=== PATIENT | female | born 1995 | race African-American/Black ===

== ENCOUNTER 2017-05-11 06:42 | Emergency (ER) | payer MEDICAID, OTHER ==
[~2017-05-11] VITALS: Ht 170.2 cm; Wt 61.2 kg
[~2017-05-11 06:42] MED LIST: IBUPROFEN600 MG ORAL; KEFLEX500 MG ORAL; NKM
[2017-05-11 07:03] VITALS: BP 107/70
[2017-05-11] MEDS ORDERED: NKM (07:09)
[2017-05-11] MEDS ORDERED: Lidocaine 2% 20mg/ml/Epi 0.005mg/ml 20ml vial INJ ONE (07:15)
[2017-05-11] MEDS ORDERED: Tetanus/Diptheria/Pertussis Vaccine 0.5ml Syr IM ONE (07:15)
--- NOTE | 2017-05-11 07:19 | Emergency Room Report ---
History of Present Illness General Chief Complaint: Head Injury Source: Patient Present Illness HPI Patient is a 21-year-old female who presented after increased pain to her head. The patient reports that getting out of a car and hitting her scalp onto a pole. She denies loss of consciousness. Reports having a headache. She denies any neck pain. She reports having prior history of asthma. She denies any difficulty breathing. She reports having chronic low back pain. The patient states that she had injury approximately one hour prior to arrival. Allergies: Coded Allergies: No Known Allergies (Unverified , 09/08/13) Patient History Past Medical History: see triage record Last Menstrual Period: 05/08/17 Now: No Reviewed Nursing Documentation: PMH: Agreed, PSxH: Agreed Nursing Documentation-PMH Hx Cardiac Problems: No Hx Asthma: Yes Hx Cancer: No Hx Gastrointestinal Problems: No Hx Neurological Problems: No Review of Systems All Other Systems: negative except mentioned in HPI Physical Exam Vital Signs Date Time Temp Pulse Resp B/P (MAP) Pulse Ox O2 Delivery O2 Flow Rate FiO2 05/11/17 07:03 98.2 65 16 107/70 100 Room Air Sp02 EP Interpretation: reviewed, normal General Appearance: normal inspection, well appearing, no apparent distress, alert, GCS 15, non-toxic Head: atraumatic ENT: normal ENT inspection, hearing grossly normal, normal voice Neck: normal inspection, full range of motion, supple, no bony tend Respiratory: normal inspection, lungs clear, normal breath sounds, no respiratory distress, no retraction, no wheezing Cardiovascular #1: regular rate, rhythm, no edema Gastrointestinal: normal inspection, normal bowel sounds, non tender, soft, no guarding, no hernia Genitourinary: no CVA tenderness Musculoskeletal: normal inspection, back normal, normal range of motion Neurologic: normal inspection, alert, oriented x3, responsive, 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 Differential diagnosis included wasn't limited to intracranial hemorrhage, skull fracture, contusion, concussion among others. Because of complexity of patient's case imaging studies were ordered. The patient has what appears to be several small lacerations to her scalp. Last Vital Signs Date Time Temp Pulse Resp B/P (MAP) Pulse Ox O2 Delivery O2 Flow Rate FiO2 05/11/17 07:03 98.2 65 16 107/70 100 Room Air Ralph Bello May 11, 2017 07:19
[2017-05-11] MEDS ORDERED: Bacitracin Oint UD TOPIC ONE ×2 (08:34→08:45)
[2017-05-11] MEDS ORDERED: NORCO 5-325 TA1 EAC1 ORAL (09:08)
[2017-05-11] MEDS ORDERED: Norco 5mg/325mg tab ORAL ONE (09:15)
[2017-05-11 09:16] VITALS: BP 114/72
--- NOTE | 2017-05-11 10:37 | Diagnostic Imaging Report ---
Indication: PAIN Technique: 3 views left hand Comparison: none Findings: No acute fractures. No dislocations. Joint spaces are preserved. Impression: Negative
[2017-05-11 11:34] VITALS: BP 114/67
--- NOTE | 2017-05-11 11:42 | Diagnostic Imaging Report ---
Indication: , Head injury to left-sided for head Technique: sagittal T1 fast spin echo, axial T1 FLAIR, axial T2 FLAIR, axial T2 FS PROPELLER, axial T2* GRE, axial diffusion weighted images. ADC and exponential ADC maps generated Comparison: CT scan 05/27/2014 Findings: No abnormal areas of restricted diffusion to suggest acute infarction. No acute hemorrhage or edema. No mass effect nor midline shift. Normal size ventricles and extra axial CSF spaces. The vascular flow voids are preserved. No definite calvarial abnormality.. Visualized orbits and sinuses are unremarkable. Small cysts are seen in the left parotid gland Impression: Negative acute infarct, intracranial bleed, or mass effect Incidental finding of small cysts in the left parotid gland. Consider further evaluation with ultrasound as clinically indicated
[2017-05-11 13:18] VITALS: BP 113/65
== END 2017-05-11 13:10 | disposition home or self-care (01) ==
LOC: EMR 07:49
DX: S09.8XXA Other specified injuries of head, initial encounter (principal); W22.8XXA Striking against or struck by other objects, initial encounter; Y92.89 Other specified places as the place of occurrence of the external cause; Z23 Encounter for immunization; R51 Headache; J45.909 Unspecified asthma, uncomplicated
CPT/HCPCS: 70551; 81025; 90471; 90715; 99284